=== PATIENT | male | born 1950 | race Caucasian/White ===

== ENCOUNTER → 2020-07-21 | Emergency (ER) | payer MEDICARE | END | disposition home or self-care (01) | LOC: ER 18:38 | DX: M25.462 Effusion, left knee (principal); X50.1XXA Overexertion from prolonged static or awkward postures, initial encounter; Y93.01 Activity, walking, marching and hiking; I10 Essential (primary) hypertension; E11.9 Type 2 diabetes mellitus without complications; E78.5 Hyperlipidemia, unspecified; Z95.810 Presence of automatic (implantable) cardiac defibrillator ==